=== PATIENT | male | born 1965 | race Asian ===

== ENCOUNTER 2017-09-19 16:00 | Emergency (ER) | payer OTHER ==
[~2017-09-19] VITALS: Wt 119.0 kg
--- NOTE | 2017-09-19 17:44 | ERD ---
ER Documentation Chief Complaint Chief Complaint lle swelling, denies trauma or pain HPI This 52-year-old male patient presents to emergency department with unilateral LE swelling x 4 days, pt reports that he sits a lot during the day at his job, denies recent travel, pt denies may, clotting disorder, reports that he is being evaluated for DM, pt states that pain started as left calf pain ROS All systems reviewed and are negative except as per history of present illness. Medications Home Meds Active Scripts Rivaroxaban* (Xarelto*) 15 Mg Tablet, 15 MG PO BID for dvt for 7 Days, #14 TAB Prov:GRAHAM VARGAS 09/19/17 PMhx/Soc Medical and Surgical Hx: pt denies Medical Hx, pt denies Surgical Hx Hx Alcohol Use: No Hx Substance Use: No Hx Tobacco Use: No Smoking Status: Never smoker Physical Exam Vitals Vital Signs Date Time Temp Pulse Resp B/P Pulse Ox O2 Delivery O2 Flow Rate FiO2 09/19/17 22:30 97.9 80 16 97 Room Air 09/19/17 16:02 99.4 114 20 168/100 98 Physical Exam Const: Well-nourished well appearing 52-year-old male patient with lower calf edema unilateral in no acute distress Head: Atraumatic Eyes: Normal Conjunctiva ENT: Normal External Ears, Nose and Mouth. Neck: Resp: Respirations even and unlabored clear to auscultation bilaterally rales wheezes or rhonchi, no egophony Cardio: S1-S2, no S3-S4 regular rate and rhythm, no murmurs Abd: Skin: No petechiae or rashes Back: Ext: Left lower extremity calf measures treatment is 17 cm, right calf lower extremity 16.5 cm, PT/DP +3/+2 bilaterally equal, negative Homans sign Neur: Awake and alert Psych: Normal Mood and Affect Result Diagram: 09/19/17184309/19/171843 Results 24 hrs Laboratory Tests Test 09/19/17 18:44 09/19/17 20:45 09/19/17 22:13 White Blood Count 12.810^3/ul Red Blood Count 5.7110^6/ul Hemoglobin 16.3g/dl Hematocrit 47.9% Mean Corpuscular Volume 83.9fl Mean Corpuscular Hemoglobin 28.5pg Mean Corpuscular Hemoglobin Concent 34.0g/dl Red Cell Distribution Width 12.4% Platelet Count 39471^3/UL Mean Platelet Volume 9.7fl Neutrophils % 62.7% Lymphocytes % 27.0% Monocytes % 6.4% Eosinophils % 2.7% Basophils % 0.9% Nucleated Red Blood Cells % 0.0/100WBC Neutrophils # 8.010^3/ul Lymphocytes # 3.510^3/ul Monocytes # 0.810^3/ul Eosinophils # 0.310^3/ul Basophils # 0.110^3/ul Nucleated Red Blood Cells # 0.010^3/ul Prothrombin Time 12.5Sec Prothrombin Time Ratio 1.0 INR International Normalized Ratio 0.93 Activated Partial Thromboplast Time 28.3Sec Sodium Level 140mmol/L Potassium Level 4.5mmol/L Chloride Level 99mmol/L Carbon Dioxide Level 30mmol/L Anion Gap 16 Blood Urea Nitrogen 17mg/dl Creatinine 0.90mg/dl Glucose Level 285mg/dl Calcium Level 9.9mg/dl Total Bilirubin 0.5mg/dl Direct Bilirubin 0.00mg/dl Indirect Bilirubin 0.5mg/dl Aspartate Amino Transf (AST/SGOT) 24IU/L Alanine Aminotransferase (ALT/SGPT) 41IU/L Alkaline Phosphatase 82IU/L Total Protein 8.3g/dl Albumin 4.2g/dl Globulin 4.10g/dl Albumin/Globulin Ratio 1.02 Bedside Urine pH (LAB) 6.0 Bedside Urine Protein (LAB) Trace Bedside Urine Glucose (UA) 0.50% Bedside Urine Ketones (LAB) 1+ Bedside Urine Blood Trace-intact Bedside Urine Nitrite (LAB) Negative Bedside Urine Leukocyte Esterase (L Negative Bedside Glucose 233mg/dL Current Medications Medications (Trade) Dose Ordered Sig/Willy Route PRN Reason Start Time Stop Time Status Last Admin Dose Admin Sodium Chloride (NS) 1,000 ml @ 1,000 mls/hr Q1H ONCE IV 09/19/17 21:30 09/19/17 22:29 DC 09/19/17 21:32 Rivaroxaban (Xarelto) 15 mg ONCE ONCE PO 09/19/17 22:30 09/19/17 22:31 DC 09/19/17 23:12 Interpretation text CBC shows no evidence of hemorrhage, WBCs elevated 12.8 Chemistry shows no evidence of significant electrolyte abnormalities glucose 285 no renal insufficiency Liver function tests shows no evidence of acute biliary or hepatic dysfunction Coagulation study showed no concerning coagulpathy Urinalysis negative for evidence of infection Procedures/MDM PROCEDURE: Ultrasound of the left lower extremity venous system. CLINICAL INDICATION: Left leg pain and swelling, deep venous thrombosis TECHNIQUE: Medley scale with and without compression, color doppler, spectral doppler of the venous system of the left lower extremity was performed. Venous augmentation maneuvers were utilized. COMPARISON: No prior studies are available for comparison. FINDINGS: Common femoral vein: Patent. Femoral vein: Nonocclusive thrombus present distally. Popliteal vein: Nonocclusive thrombus present. Calf veins: Thrombus present within the posterior tibial veins. No soft tissue abnormalities are identified. IMPRESSION: Nonocclusive deep venous thrombus within the distal left femoral vein and popliteal vein. Electronically viewed and signed by .Jamison Lorenzo MD, on 2016 18:48 [place] 52-year-old male patient presents to emergency department for evaluation of left lower extremity edema, patient reports symptoms 4 days, at onset patient reports left calf pain which has subsided now he denies pain but reports swelling. Patient denies history of recent travel, states he does sit for his job, he denies smoking, or known clotting disorder. Patient denies shortness of breath, chest pain, dizziness, palpitations. She is emergency room course includes history and physical, Homans sign negative, obvious asymmetry, left lower extremity larger than right lower extremity, venous Doppler to rule out DVT ordered, routine labs, WBCs slightly elevated at 12.8, nonfasting blood sugar elevated 285. Venous Doppler demonstrates nonocclusive DVT within the distal left femoral vein and popliteal vein, this case discussed with supervising physician Dr. Guzman, plan to start Xarelto 15 mg p.o. twice daily patient will receive 7 days worth instructed that he must follow-up with his primary care physician to continue treatment, strict return to emergency department if unable to secure appointment. Return to emergency department for chest pain, shortness of breath, palpitations, dizziness, or overall worsening of symptoms including leg pain, worsening of edema. Patient is stable with no new complaints during ER course, clinically there is no current evidence to suggest compartment syndrome, DVT, acute coronary syndromes, pulmonary embolism or any other emergent condition appearing to require further evaluation or hospitalization. I feel the patient is stable for discharge at this time. I have discussed results, examination findings, the treatment plan with the patient and family present prior to discharge. Indications for emergent reevaluation, side effects of medication were also discussed. All questions were answered. Patient verbalizes understanding and agrees with plan of care. Departure Diagnosis: Primary Impression: DVT of popliteal vein Chronicity: acute Laterality: left Qualified Code: I82.432 - Acute deep vein thrombosis (DVT) of popliteal vein of left lower extremity Additional Impressions: DVT, lower extremity, distal Chronicity: acute Laterality: left Qualified Code: I82.4Z2 - Acute deep vein thrombosis (DVT) of distal vein of left lower extremity Femoral DVT (deep venous thrombosis) Chronicity: acute Laterality: left Qualified Code: I82.412 - Acute deep vein thrombosis (DVT) of femoral vein of left lower extremity Condition: Good Patient Instructions: Complications of Deep Vein Thrombosis, Deep Vein Thrombosis, Venous Thrombolytic Therapy Additional Instructions: Thank you for for coming to [facility] for your care today. Please ask your nurse or provider if you have questions about your care today and do not leave until all your questions have been answered. Please use any medications given as directed and follow-up with your doctor (or the doctor you were referred to) in the next 2-3 days. If you do not have a primary care doctor you may follow up at the [facility] [place] (listed below). You may also use motrin and tylenol as needed for fever and/or pain unless instructed otherwise by your provider or nurse. Indications for more urgent follow-up have been discussed, but you may return to the Emergency Department at ANY time for any worrisome or worsening symptoms. If you have abdominal pain, please know that no test or exam you received is perfect and you should follow up within 8 hours for continued pain. If you had any imaging studies today, such as an X-Ray or CT Scan, these studies will be reviewed later by a radiologist. You will be called if there are important findings that were not identified today, so make sure the contact information you provided at registration is correct. If you received any narcotic pain control medicine today, such as Vicodin, Morphine or Dilaudid, your coordination and judgment may be affected for a number of hours. Please do not drive or operate heavy machinery, and you may want someone to assist you at home. If you were given a prescription for narcotic medication, be aware that it is very addictive- use sparingly and only if necessary. Comments Late entry, 1620-September 20, 2017 Patient called at home by myself area code [phone] for emergency room follow-up. Message left patient provided with phone number, instructions for worsening of symptoms. GRAHAM VARGAS Sep 19, 2017 17:44
--- NOTE | 2017-09-19 18:49 | RADRPT ---
PROCEDURE: Ultrasound of the left lower extremity venous system. CLINICAL INDICATION: Left leg pain and swelling, deep venous thrombosis TECHNIQUE: Medley scale with and without compression, color doppler, spectral doppler of the venous system of the left lower extremity was performed. Venous augmentation maneuvers were utilized. COMPARISON: No prior studies are available for comparison. FINDINGS: Common femoral vein: Patent. Femoral vein: Nonocclusive thrombus present distally. Popliteal vein: Nonocclusive thrombus present. Calf veins: Thrombus present within the posterior tibial veins. No soft tissue abnormalities are identified. IMPRESSION: Nonocclusive deep venous thrombus within the distal left femoral vein and popliteal vein. RPTAT: AADD .Jamison Lorenzo MD, MD Date Time Electronically viewed and signed by .Jamison Lorenzo MD, MD on 09/19/2017 18:48 .B/
[2017-09-19 18:52] LABS: BASOPHIL # 0.1 10^3/ul (0.0-0.1); BASOPHILS % 0.9 % (0.0-2.0); EOSINOPHILS # 0.3 10^3/ul (0.0-0.5); EOSINOPHILS % 2.7 % (0.0-7.0); HEMATOCRIT 47.9 % (42.0-52.0); HEMOGLOBIN 16.3 g/dl (14.0-18.0); LYMPHOCYTES # 3.5 10^3/ul (0.8-2.9); MEAN CORPUSCULAR HEMOGLOBIN 28.5 pg (29.0-33.0); MEAN CORPUSCULAR VOLUME 83.9 fl (82.0-101.0); MEAN PLATELET VOLUME 9.7 fl (7.4-10.4); MONOCYTE # 0.8 10^3/ul (0.3-0.9); MONOCYTES % 6.4 % (0.0-11.0); NEUTROPHILS % 62.7 % (39.0-77.0); PLATELET COUNT 268 10^3/UL (140-415); RED BLOOD COUNT 5.71 10^6/ul (4.70-6.10); RED CELL DISTRIBUTION WIDTH 12.4 % (11.5-14.5); WHITE BLOOD COUNT 12.8 10^3/ul (4.8-10.8)
[2017-09-19 19:15] LABS: ALBUMIN 4.2 g/dl (3.3-4.9); ALBUMIN/GLOBULIN RATIO 1.02; BILIRUBIN,INDIRECT 0.5 mg/dl (0-1.1); BILIRUBIN,TOTAL 0.5 mg/dl (0.2-1.3); CALCIUM 9.9 mg/dl (8.4-10.2); CREATININE 0.9 mg/dl (0.61-1.24); POTASSIUM 4.5 mmol/L (3.5-5.1); TOTAL PROTEIN 8.3 g/dl (6.1-8.1)
[2017-09-19 19:27] LABS: INR 0.93; PROTIME 12.5 Sec (12.2-14.2)
[2017-09-19 19:28] LABS: PARTIAL THROMBOPLASTIN TIME 28.3 Sec (25.0-35.0)
[2017-09-19 20:47] LABS: URINE BLOOD (Dip) POC Trace-intact (NEGATIVE)
[2017-09-19] MEDS ORDERED: SOD CHLORIDE 0.9% 1,000 ML IV ONE (21:30)
[2017-09-19 22:30] VITALS: PULSE 80; RESP 16; TEMP 97.9
[2017-09-19] MEDS ORDERED: RIVAROXABAN 15 MG TABLET PO ONE (22:30)
[2017-09-19] MEDS ORDERED: RIVA15TA PO (22:32)
== END 2017-09-19 23:27 | disposition home or self-care (01) ==
LOC: FTE 16:00
DX: I82.432 Acute embolism and thrombosis of left popliteal vein (principal); I82.4Z2 Acute embolism and thrombosis of unspecified deep veins of left distal lower extremity; I82.412 Acute embolism and thrombosis of left femoral vein
CPT/HCPCS: 80053; 81003; 82962; 85025; 85610; 85730; 93971; 99285; J7030